=== PATIENT | female | born 1990 | race Caucasian/White ===

== ENCOUNTER 2017-03-08 14:10 | Emergency (ER) | payer SELFPAY ==
[~2017-03-08 14:10] MED LIST: ACID CONTROL20 MG PO; BACTRIM DS TAB1 EAC2 PO; BACTRIM DS TABL1 TAB PO; EURAX60 GM TP; FLAGYL250 MG PO; GRANISETRON HCL1 MG PO; HYDROCODON-ACE1 EA16 PO; K-DUR20 ME1 PO; LUNESTA1 MG PO; MEDROL16 MG PO; MEDROL2 MG PO; MEDROL4 MG PO; MEDROL8 MG PO; NAPROSYN500 MG PO; NO HOME MEDICATION XX; NORCO 5-325 TA1 EACH PO; NORCO 5/325 TAB1 TAB PO; POLYTRIM EYE DR10 ML LEFT EYE; PRENATAL1 EACH PO; SEROQUEL25 MG PO; TRAMADOL HCL50 MG PO; ZOFRAN ODT4 MG/UDTAB PO; ZOFRAN8 MG PO
== END 2017-03-08 15:48 ==
LOC: EDMED 14:10
DX: S46.011A Strain of muscle(s) and tendon(s) of the rotator cuff of right shoulder, initial encounter (principal); X50.1XXA Overexertion from prolonged static or awkward postures, initial encounter; Y93.89 Activity, other specified; Y99.8 Other external cause status; F17.200 Nicotine dependence, unspecified, uncomplicated; Z90.49 Acquired absence of other specified parts of digestive tract; Z90.89 Acquired absence of other organs; Z98.890 Other specified postprocedural states; Z88.2 Allergy status to sulfonamides; Z88.1 Allergy status to other antibiotic agents; Z88.8 Allergy status to other drugs, medicaments and biological substances
CPT/HCPCS: J1885